=== PATIENT | female | born 1980 | race Caucasian/White ===

== ENCOUNTER 2017-02-05 09:26 | Inpatient (IN) | payer MEDICAID ==
[~2017-02-05] VITALS: Ht 149.9 cm; Wt 66.4 kg
[2017-02-05 10:25] VITALS: Ht 149.9 cm; Wt 66.4 kg
[2017-02-05 10:27] VITALS: BP 131/86; PULSE 71; RESP 20
[2017-02-05] MEDS ORDERED: AMPICILLIN 2 GM/NS (PMX) 100 ML IV ONE (10:30)
[2017-02-05] MEDS ORDERED: MISOPROSTOL 200 MCG TAB PR PRN (10:30)
[2017-02-05] MEDS ORDERED: METHYLERGONOVINE 0.2 MG INJ IM PRN (10:30)
[2017-02-05] MEDS ORDERED: OXYTOCIN 30 UNITS/LR 500 ML IV SCH ×3 (10:30→12:00)
[2017-02-05] MEDS ORDERED: LIDOCAINE 1% (MPF) 30 ML INJ INJ PRN (10:30)
[2017-02-05] MEDS ORDERED: CARBOPROST 250 MCG INJ IM PRN (10:30)
[2017-02-05] MEDS ORDERED: OXYTOCIN 30 UNITS/LR 500 ML IV PRN (10:30)
[2017-02-05] MEDS ORDERED: HYDROCODONE/APAP (5/325) TAB PO PRN (10:30)
[2017-02-05] MEDS ORDERED: IBUPROFEN 600 MG TAB PO PRN (10:30)
[2017-02-05] MEDS ORDERED: BUTORPHANOL 2 MG INJ IV PRN (10:30)
[2017-02-05] MEDS: LACTATED RINGER'S 1,000 ML IV SCH ×2 (10:40→18:00)
[2017-02-05 10:55] LABS: BASOPHILS % 0.4 % (0.0-2.0); EOSINOPHILS # 0.1 10^3/ul (0.0-0.5); EOSINOPHILS % 1.9 % (0.0-7.0); HEMOGLOBIN 12.7 g/dl (12.0-16.0); LYMPHOCYTES # 1.7 10^3/ul (0.8-2.9); LYMPHOCYTES % 22.7 % (15.0-51.0); MEAN CORPUSCULAR HEMOGLOBIN 27.3 pg (29.0-33.0); MEAN CORPUSCULAR HGB CONC 34.3 g/dl (32.0-37.0); MEAN CORPUSCULAR VOLUME 79.6 fl (82.0-101.0); MEAN PLATELET VOLUME 11.4 fl (7.4-10.4); MONOCYTE # 0.6 10^3/ul (0.3-0.9); MONOCYTES % 7.9 % (0.0-11.0); NEUTROPHILS % 66.7 % (39.0-77.0); PLATELET COUNT 226 10^3/UL (140-415); RED BLOOD COUNT 4.65 10^6/ul (4.20-5.40); RED CELL DISTRIBUTION WIDTH 14.6 % (11.5-14.5); WHITE BLOOD COUNT 7.4 10^3/ul (4.8-10.8)
[2017-02-05 10:59] LABS: INR 0.87; PROTIME 11.9 Sec (11.9-14.9); PT RATIO 0.9
[2017-02-05 11:00] LABS: PARTIAL THROMBOPLASTIN TIME 25.8 Sec (25.0-35.0)
--- NOTE | 2017-02-05 12:22 | RADRPT ---
PROCEDURE: US OB. CLINICAL INDICATION: Uncertain size and dates. TECHNIQUE: Multiple sonographic images of the uterus were obtained. The images were revi ewed on a PACS workstation. COMPARISON: No prior studies are available for comparison. FINDINGS: There is a single live intrauterine gestation. heart rate is 126 beats per minute. Measurements were made in order to determine age. The results are as follows: BPD = 8.73 cm. HC = 32.48 cm. AC = 34.37 cm. FL = 6.86 cm. Estimated weight is 3100 +/- 465 grams. LMP growth percentile is 21 %. Menstrual age by ultrasound dates is 36 weeks 3 days. The estimated date of delivery is 03/02/2017. Position is cephalic and placenta is anterior grade II. There is no evidence for an abruption or vahe centa previa. IMPRESSION: 1. Single live intrauterine gestation of 36 weeks 3 days menstrual age by ultrasound dates. 2. The estimated date of delivery is 03/02/2017. RPTAT: QQ .Vinh Sibley MD, Date Time Electronically viewed and signed by .Vinh Sibley MD, on 02/05/2017 12:22 .R/
[2017-02-05] MEDS ORDERED: METH-493 PO (14:31)
[2017-02-05] MEDS: AMPICILLIN 1 GM/NS (PMX) 50 ML IV SCH ×2 (14:35→18:28)
--- NOTE | 2017-02-05 22:46 | LDN ---
Date/Time of Note Date/Time of Note DATE: 02/05/17 TIME: 22:45 Delivery Summary Weeks of Gestation 39 Meconium: none Episiotomy: No Indication for episiotomy 2nd Anesthesia type: Local Estimated blood loss: 200 Sponge & Needle done & correct: Yes All needle counts correct: Yes Any foreign bodies felt in the: No Problems: Infant Delivery Information Sex Sex: female Apgars 1 Minute: 9 Suctioning Nose & mouth suctioned at [place]: Yes Delee suction performed: Yes Umbilical Cord Umbilical cord with: 3 Vessels Cord presentations: no nuchal cord Cord Blood was obtained: Yes Mother & Baby Disposition Disposition Mom & Baby to Maternity; Good: Yes Baby to NICU: No ABEL PRIDE M.D. Feb 05, 2017 22:46
--- NOTE | 2017-02-05 22:48 | HP ---
Date/Time of Note Date/Time of Note DATE: 02/05/17 TIME: 22:46 OB - History Hx of Present Free Text/Dictation @39+wks GA GDM for induction : 3 Para: 1 Care: Good Care Obstetrical Complications: Gestational Diabetes Past Family/Social History * Past Medical, Surgical, Family and Obstetric Histories reviewed from chart. OB Admission Exam Vital Signs Vital Signs Vital Signs Date Time Temp Pulse Resp B/P Pulse Ox O2 Delivery O2 Flow Rate FiO2 02/05/17 10:27 97.9 71 20 131/86 Room Air Physical Exam Abdomen: WNL Extremities: Normal Cervical Dilatation: 1cm Effacement: 75% Station: -1 Membranes: Intact Heart Rate: 140's Accelerations: Accelerations Present Decelerations: No Decelerations Varibility: Moderate Contractions on Admission: 6-10 Minutes Apart Last 72 hourBlood Glucose Bedside Glucose - 72 Hours Test 02/05/17 20:05 Bedside Glucose 83mg/dL (70-220) Last 72 hours Lab Results CBC & BMP 02/05/17 09:52 OB Assessment/Plan Reason for admission: induction of labor Induction Method: per Pitocin Protocol ABEL PRIDE M.D. Feb 05, 2017 22:48
[2017-02-06] VITALS (17 sets, daily range): BP systolic 88–128; BP diastolic 49–75; PULSE 63–83; RESP 14–22
[2017-02-06] MEDS ORDERED: LANOLIN 7 GM TUBE TOP PRN (01:00)
[2017-02-06] MEDS ORDERED: MISOPROSTOL 200 MCG TAB PR PRN (01:00)
[2017-02-06] MEDS ORDERED: OXYCODONE/ASPIRIN (4.88/325) TAB PO PRN (01:00)
[2017-02-06] MEDS ORDERED: ZOLPIDEM 5 MG TAB PO PRN (01:00)
[2017-02-06] MEDS ORDERED: METHYLERGONOVINE 0.2 MG INJ IM PRN (01:00)
[2017-02-06] MEDS ORDERED: OXYTOCIN 30 UNITS/LR 500 ML IV PRN (01:00)
[2017-02-06] MEDS ORDERED: CARBOPROST 250 MCG INJ IM PRN (01:00)
[2017-02-06] MEDS: LACTATED RINGER'S 1,000 ML IV* SCH ×3 (02:42→15:54)
[2017-02-06] MEDS: IBUPROFEN 600 MG TAB PO SCH ×3 (06:07→18:00)
[2017-02-06] MEDS ORDERED: CEFAZOLIN 1 GM INJ ONE (07:00)
[2017-02-06] MEDS ORDERED: METHIMAZOLE 5 MG TAB PO SCH (09:00)
[2017-02-06 09:10] LABS: BASOPHILS % 0.2 % (0.0-2.0); EOSINOPHILS # 0.1 10^3/ul (0.0-0.5); HEMATOCRIT 35.4 % (37.0-47.0); HEMOGLOBIN 12.2 g/dl (12.0-16.0); LYMPHOCYTES # 1.6 10^3/ul (0.8-2.9); LYMPHOCYTES % 15.3 % (15.0-51.0); MEAN CORPUSCULAR HEMOGLOBIN 27.6 pg (29.0-33.0); MEAN CORPUSCULAR HGB CONC 34.5 g/dl (32.0-37.0); MEAN CORPUSCULAR VOLUME 80.1 fl (82.0-101.0); MONOCYTE # 0.7 10^3/ul (0.3-0.9); MONOCYTES % 6.8 % (0.0-11.0); NEUTROPHIL # 7.9 10^3/ul (1.6-7.5); NEUTROPHILS % 76.4 % (39.0-77.0); PLATELET COUNT 215 10^3/UL (140-415); RED BLOOD COUNT 4.42 10^6/ul (4.20-5.40); RED CELL DISTRIBUTION WIDTH 14.8 % (11.5-14.5); WHITE BLOOD COUNT 10.3 10^3/ul (4.8-10.8)
[2017-02-06] MEDS: ACCU-CHEK XX SCH ×3 (11:26→20:05)
[2017-02-06] MEDS: METHIMAZOLE 5 MG TAB PO SCH ×2 (12:50→21:00)
[2017-02-06] MEDS ORDERED: PROPOFOL 20 ML ONE (21:20)
[2017-02-06] MEDS ORDERED: METOCLOPRAMIDE 10 MG INJ ONE (21:20)
[2017-02-06] MEDS ORDERED: MIDAZOLAM 1 MG/ML 2 ML INJ ONE (21:20)
[2017-02-06] MEDS ORDERED: morphine SULFATE/PF (10 MG/10 ML) INJ ONE (21:24)
[2017-02-06] MEDS ORDERED: ONDANSETRON 4 MG INJ ONE (21:46)
[2017-02-06] MEDS ORDERED: KETOROLAC 30 MG INJ IV PRN (22:00)
[2017-02-06] MEDS ORDERED: DIPHENHYDRAMINE 50 MG INJ IV PRN ×2 (22:00)
[2017-02-06] MEDS ORDERED: morphine 4 MG/ML VIAL IV PRN (22:00)
[2017-02-06] MEDS ORDERED: morphine (1 MG/ML) 10ML SYRINGE IV PRN ×2 (22:00)
[2017-02-06] MEDS ORDERED: METOCLOPRAMIDE 10 MG INJ IV PRN (22:00)
[2017-02-06] MEDS ORDERED: ONDANSETRON 4 MG INJ IV PRN ×2 (22:00)
[2017-02-06] MEDS ORDERED: NALOXONE (0.4 MG/ML) INJ IV PRN (22:00)
[2017-02-06] MEDS ORDERED: morphine 2 MG INJ IV PRN ×2 (22:00)
--- NOTE | 2017-02-06 22:13 | OPPN ---
Date/Time of Note Date/Time of Note DATE: 02/06/17 TIME: 22:12 Operative Report Planned Procedure Procedure date Feb 06, 2017 Procedure(s) Tubal ligation Performed by see signature line Stepdown Nurse none Pre-procedure diagnosis Multipara desires sterilization Anesthesia Type: spinal Post-Procedure Post-procedure diagnosis same Findings Live Baby [], Apgars [] and [], weight [], position [], [] presentation []cord. Estimated Blood Loss: 0 - 10 mls Specimen(s) none Grafts/Implant(s) none Complication(s) none ABEL PRIDE M.D. Feb 06, 2017 22:13
--- NOTE | 2017-02-06 22:14 | QN ---
Documentation Comment PPD#1 is stable afebrile tolerates diet No VB +BM +voids VS stable Gen NAD Abd soft NT ND Genitalia No blood at perinium --->s/p BTL --->discharge plan tomorrow ABEL PRIDE M.D. Feb 06, 2017 22:14
[2017-02-06] MEDS: morphine (1 MG/ML) 10ML SYRINGE IV PRN ×2 (22:41→23:00)
[2017-02-07 04:15] VITALS: BP 105/59; PULSE 74; RESP 18
[2017-02-07] MEDS: IBUPROFEN 600 MG TAB PO SCH ×4 (05:36→18:05)
[2017-02-07] MEDS: ACCU-CHEK XX SCH ×3 (07:44→13:50)
[2017-02-07 08:00] VITALS: BP 113/59; PULSE 72; RESP 18
[2017-02-07] MEDS: METHIMAZOLE 5 MG TAB PO SCH ×2 (09:09→12:22)
[2017-02-07 15:50] VITALS: BP 112/72; PULSE 70; RESP 18
--- NOTE | 2017-02-07 16:02 | PN ---
Date/Time of Note Date/Time of Note DATE: 02/07/17 TIME: 15:59 Assessment/Plan VTE Prophylaxis VTE Prophylaxis Intervention: ambulation Lines/Catheters IV Catheter Type (from Nrsg): Saline Lock Subjective 24 Hr Interval Summary Free Text/Dictation Anesthesia note: A 36 year female s/p spial duramorph and TIVA pod#1 is doing fine, no pain, itching, n/v, headache, neural deficit. no back pain or inflammation. ambulating care per surgery Exam/Review of Systems Vital Signs Vitals Vital Signs Date Time Temp Pulse Resp B/P Pulse Ox O2 Delivery O2 Flow Rate FiO2 02/07/17 15:50 98.1 70 18 112/72 Room Air 02/06/17 22:55 100 02/06/17 22:35 3.0 Intake and Output 02/06/17 02/06/17 02/07/17 15:00 23:00 07:00 Intake Total 250 ml 1050 ml 750 ml Output Total 250 ml 305 ml 350 ml Balance 0 ml 745 ml 400 ml Results Result Diagram: 02/06/17 0835 02/05/17 0952 Results 24 hrs Laboratory Tests Test 02/07/17 07:44 02/07/17 11:05 02/07/17 14:00 Bedside Glucose 90 139 106 Medications Medications Current Medications Ibuprofen (Motrin) 600 mg Q6 PO Last administered on 02/07/17t 12:23; Admin Dose 600 MG; Start 02/06/17 at 06:00 Oxycodone/Aspirin (Percodan) 2 tab Q3H PRN PO PAIN LEVEL 6-10; Start 02/06/17 at 01:00 Zolpidem Tartrate 5 mg 5 mg QHS PRN PO INSOMNIA; Start 02/06/17 at 01:00 Oxytocin/Lactated Ringer's 500 ml @ 0 mls/hr ONCE PRN IV For Hemorrhage Management; Start 02/06/17 at 01:00 Methylergonovine Maleate (Methergine) 0.2 mg ONCE PRN IM VAGINAL BLEEDING; Start 02/06/17 at 01:00 Carboprost Tromethamine (Hemabate) 250 mcg ONCE PRN IM VAGINAL BLEEDING; Start 02/06/17 at 01:00 Misoprostol (Cytotec) 1,000 mcg ONCE PRN NE VAGINAL BLEEDING; Start 02/06/17 at 01:00 Diagnostic Test (Pha) (Accu-Chek) 1 ea FBSPP XX ; Start 02/06/17 at 10:05 Methimazole (Tapazole) 5 mg TID PO Last administered on 02/07/17t 12:22; Admin Dose 5 MG; Start 02/06/17 at 13:00 Naloxone HCl (Narcan) 0.1 mg Q2M PRN IV FOR RESP RATE 8 OR LESS; Start at 22:00; Stop 02/07/17 at 21:59 Ketorolac Tromethamine (Toradol) 30 mg Q6H PRN IV PAIN; Start 02/06/17 at 22:00 ; Stop 02/07/17 at 21:59 Morphine Sulfate (morphine) 2 mg Q3 PRN IV BREAKTHROUGH PAIN; Start 02/06/17 at 22:00; Stop 02/07/17 at 21:59 Morphine Sulfate (morphine) 2 mg Q3H PRN IV PAIN LEVEL 1-5; Start 02/06/17 at 22:00; Stop 02/07/17 at 21:59 Morphine Sulfate (morphine) 4 mg Q3H PRN IV PAIN LEVEL 6-10; Start 02/06/17 at 22:00; Stop 02/07/17 at 21:59 Diphenhydramine HCl (Benadryl) 25 mg Q6H PRN IV ITCHING; Start 02/06/17 at 22: 00; Stop 02/07/17 at 21:59 Ondansetron HCl (Zofran Inj) 4 mg Q6H PRN IV NAUSEA AND/OR VOMITING; Start 02/06/17 at 22:00; Stop 02/07/17 at 21:59 MELVIN VILLATORO MD Feb 07, 2017 16:02
--- NOTE | 2017-02-08 11:53 | OPR ---
DATE OF OPERATION: PREOPERATIVE DIAGNOSIS: . POSTOPERATIVE DIAGNOSIS: . PROCEDURE: bilateral tubal ligation. ATTENDING SURGEON: . ANESTHESIOLOGIST: Dr. Victor. TYPE OF ANESTHESIA: Spinal. COMPLICATIONS: None. ESTIMATED BLOOD LOSS: Less than 5 mL. DESCRIPTION OF PROCEDURE: The patient was taken to the operating room where spinal anesthesia was f ound to be adequate. The patient was placed in supine position . anesthesia befor e the fascia. The fascial incision was extended. The right tube was identified using a [employer] and tube were tied 4 times using Monocryl and sutures. A portion of the right tube wa s cut using Metzenbaum scissors. The same procedure was done on the left tube. Hemostasis achieved. Fascia was closed in running fashion using sutures. using plain sutures, the skin using 3-0 Monocryl sutures. Dermabond was placed on top of the incision. The patient tolerated the procedure well and was transferred to recovery in stable condition. There was no complication regard ing this surgery. Dictated By: ABEL COULTER/KESHAWN Conf#: [id number] DID#: [id number]
== END 2017-02-07 18:50 | disposition home or self-care (01) | DRG 767 ==
LOC: L-D 09:26 → PP1 02-06 00:45
PROVIDERS: ADMIT Obstetrics & Gynecology; ATTEND Obstetrics & Gynecology
PROC: 0UL73ZZ Occlusion of Bilateral Fallopian Tubes, Percutaneous Approach (ICD-10-PCS; 2017-02-06)
PROC: 0W8NXZZ Division of Female Perineum, External Approach (ICD-10-PCS; 2017-02-06)
PROC: 3E033VJ Introduction of Other Hormone into Peripheral Vein, Percutaneous Approach (ICD-10-PCS; 2017-02-06)
PROC: 10E0XZZ Delivery of Products of Conception, External Approach (ICD-10-PCS; principal; 2017-02-06 21:00)
DX: O99.284 Endocrine, nutritional and metabolic diseases complicating childbirth (principal); O24.429 Gestational diabetes mellitus in childbirth, unspecified control; E03.9 Hypothyroidism, unspecified; Z30.2 Encounter for sterilization; Z3A.39 39 weeks gestation of pregnancy; Z37.0 Single live birth
CPT/HCPCS: 76815; 82947; 82962; 85025; 85610; 85730; 86592; 86850; 86900; 86901; 87340; 88302; J0290; J0595; J0690; J2250; J2270; J2274; J2405; J2590; J2765; J7120